=== PATIENT | female | born 1995 | race Caucasian/White ===

== ENCOUNTER 2017-12-05 09:53 | Day surgery (SDC) | payer OTHER ==
[2017-12-03 15:26] LABS: Absolute Lymphocytes (CBC) 2.3 K/uL (0.7-4.9); Absolute Monocytes 0.7 K/uL (0.1-1.3); Absolute Neutrophil 5.5 K/uL (1.8-8.0); Basophils % 0.6 % (0-1.3); Hematocrit 37.3 % (36.0-45.0); Lymphocytes % 26.4 % (15.3-44.8); MCH 27.9 pg (27.0-35.0); MCV 81.1 fL (80-100); MPV 8.4 fL (7.6-11.3); Monocytes % 7.9 % (3.3-12.3); RBC Red Blood Cell Count 4.59 M/uL (3.86-4.86)
[~2017-12-05 09:53] MED LIST: CEFAZOLIN/SWI 1gm 1 GM/10 ML SYR IVP SCH
[2017-12-05] MEDS ORDERED: CEFAZOLIN/SWI 1gm 1 GM/10 ML SYR ONE (10:14)
[2017-12-05] MEDS ORDERED: Ringers Lactate 1,000 ML IV ONE (10:14)
[2017-12-05] MEDS ORDERED: BUPIVACAINE 0.5% PF 10 ML VIAL ONE (10:23)
[2017-12-05] MEDS ORDERED: FENTANYL CITR 100 MCG/2 ML ONE ×2 (11:27→12:09)
[2017-12-05] MEDS ORDERED: PROPOFOL 200 MG/20 ML VIAL IV ONE (11:27)
[2017-12-05] MEDS ORDERED: MIDAZOLAM HCL 2 MG/2 ML INJ ONE (11:27)
[2017-12-05] MEDS ORDERED: KETOROLAC 30 MG/ML INJ ONE (12:04)
[2017-12-05] MEDS ORDERED: ONDANSETRON HCL 40 MG/20 ML VIAL ONE (12:09)
[2017-12-05] MEDS ORDERED: DEXAMETHASONE 10 MG/ML VIAL ONE (12:10)
[2017-12-05] MEDS: MEPERIDINE HCL 50 MG/ML AMP ONE ×2 (12:43→12:50)
[2017-12-05] MEDS ORDERED: MEPERIDINE HCL 50 MG/ML AMP ONE (13:11)
[2017-12-05] MEDS ORDERED: HYDROCODONE/APAP 7.5/325 MG TAB ONE (14:00)
[2017-12-05 14:10] VITALS: BP 112/62; TEMP 97.7; O2SAT 99
--- NOTE | 2017-12-05 23:27 | OP ---
Date of Procedure: 12/05/2017 Surgeon: Nayan Baker MD Preoperative Diagnosis: Inflamed left axillary mass. Postoperative Diagnosis: Inflamed left axillary mass. Procedure: Wide excision, left axillary mass, 6 x 3 cm, with layered closure. Estimated Blood Loss: Minimal. Specimen: Left axillary mass. Findings: Most likely an epidermal inclusion cyst with mild inflammation. Anesthesia: General. Complication: None. Disposition: The patient tolerated the procedure in stable condition and was taken to recovery in go od general condition. Procedure In Detail: The patient was brought to the OR and placed in supine position. General anest hesia was begun. The patient was prepped and draped in usual sterile fashion. Marcaine 0.5% was inf iltrated locally. A 15-blade was used to make a 6 x 3.5 mm incision to include this entire tender ma ss, slightly erythematous, down to the subcutaneous tissue, completely encompassing the mass as being excised all the way down to the deep subcutaneous tissue, sent to Pathology. Wound was irrigated. Bleeding was controlled with cautery. A 2-0 chromic and 3-0 chromic were used to approximate the carmen p subcutaneous tissue and close the skin. Sterile dressing was applied. The patient was awakened an d taken to recovery in good general condition. Discharge Note: The patient will go to day surgery and home when stable. Disposition: Home. Condition: Stable. Discharge Instructions: Resume home meds and diet. Activity as tolerated. No heavy lifting. Remov e outer dressing in 2 days. Shower. Keep wound clean and dry. Keep pressure dressing on and follow up in my office in 2 weeks. Call for appointment. The patient already has antibiotics and Tylenol No. 3 one tablet p.o. q.4 p.r.n. for pain. /MODL Voice ID: [id number] Report ID: [id number]
== END 2017-12-05 14:25 | disposition home or self-care (01) ==
LOC: OR 09:53
PROVIDERS: ATTEND Surgery
PROC: 0JBF0ZZ Excision of Left Upper Arm Subcutaneous Tissue and Fascia, Open Approach (ICD-10-PCS; principal; 2017-12-05 11:30)
DX: L72.0 Epidermal cyst (principal); L02.412 Cutaneous abscess of left axilla; E66.9 Obesity, unspecified; Z91.040 Latex allergy status
CPT/HCPCS: 36415; 84703; 85025; 88304; J0690; J1100; J2175; J2250; J2405; J3010

== ENCOUNTER 2018-07-03 00:28 | Emergency (ER) | payer OTHER ==
[2018-07-03] MEDS ORDERED: MEPERIDINE HCL 25 MG/0.5 ML ONE ×2 (01:19→02:46)
[2018-07-03] MEDS ORDERED: PROMETHAZINE 25 MG/ML VIAL ONE (01:19)
[2018-07-03] MEDS ORDERED: NA CHLORIDE 0.9% 1,000 ML ONE (01:19)
[2018-07-03 01:36] LABS: Absolute Lymphocytes (CBC) 1.7 K/uL (0.7-4.9); Absolute Monocytes 0.6 K/uL (0.1-1.3); Absolute Neutrophil 5.2 K/uL (1.8-8.0); Basophils % 0.4 % (0-1.3); Eosinophils % 0.5 % (0-4.4); Hematocrit 35.8 % (36.0-45.0); Lymphocytes % 22.3 % (15.3-44.8); MPV 8.7 fL (7.6-11.3); Monocytes % 8.2 % (3.3-12.3); RBC Red Blood Cell Count 4.39 M/uL (3.86-4.86)
[2018-07-03 01:50] LABS: Sodium Level 139 mmol/L (136-145)
[2018-07-03 01:51] LABS: ALT/SGPT 34 U/L (12-78); AST/SGOT 18 U/L (15-37); Albumin 3.5 g/dL (3.4-5.0); Alkaline Phosphatase 70 U/L (45-117); BUN Blood Urea Nitrogen 9 mg/dL (7-18); Bicarbonate 24 mmol/L (21-32); Bilirubin Direct 0.1 mg/dL (0-0.2); Bilirubin Total 0.3 mg/dL (0.2-1.0); Glucose Level 142 mg/dL (74-106); Lipase 57 U/L (73-393); Potassium 3.7 mmol/L (3.5-5.1); Protein, Total 7.3 g/dL (6.4-8.2)
[2018-07-03 03:46] LABS: Urine Blood TRACE (NEG); Urine Glucose NEGATIVE (NEG); Urine Protein NEGATIVE (NEG); Urine Specific Gravity 1.025 (1.005-1.030); Urine pH 6.5 (5.0-7.0)
--- NOTE | 2018-07-03 04:23 | ER ---
Nurse's Notes [facility] Name: Emely Fitzpatrick Age: 22 yrs Sex: Female : 1995 Arrival Date: 07/03/2018 Time: 00:28 Bed 15 Private MD: Diagnosis: Lower abdominal pain, unspecified Presentation: 07/03 00:36 Presenting complaint: Patient states: "I am having really bad pain on my lower right jd3 side that comes around to my back. I am currently and my doctor told me to come in.". Transition of care: patient was not received from another setting of care. Onset of symptoms was July 03, 2018. Risk Assessment: Do you want to hurt yourself or someone else? Patient reports no desire to harm self or others. Initial Sepsis Screen: Does the patient meet any 2 criteria? No. Patient's initial sepsis screen is negative. Does the patient have a suspected source of infection? No. Patient's initial sepsis screen is negative. Care prior to arrival: None. 00:36 Method Of Arrival: Ambulatory jd3 00:36 Acuity: ERVIN 3 jd3 Historical: - Allergies: 00:38 Sulfa (Sulfonamide Antibiotics); jd3 - Home Meds: 00:38 Vitamin Oral [Active]; jd3 - PMHx: 00:38 None; jd3 - PSHx: 00:38 Cholecystectomy; Knee surgery; jd3 - Immunization history:: Adult Immunizations up to date. - Social history:: Smoking status: Patient/guardian denies using tobacco. - Ebola Screening: : Patient negative for fever greater than or equal to 101.5 degrees Fahrenheit, and additional compatible Ebola Virus Disease symptoms. Screenin:50 Abuse screen: Denies threats or abuse. Nutritional screening: No deficits noted. ea Tuberculosis screening: No symptoms or risk factors identified. Fall Risk None identified. Assessment: 00:50 General: Appears uncomfortable, Behavior is restless. Pain: Complains of pain in right ea flank pain. Neuro: Level of Consciousness is awake, alert, obeys commands, Oriented to person, place, time. Cardiovascular: Patient's skin is warm and dry. Respiratory: Airway is patent Respiratory effort is even, unlabored, Respiratory pattern is regular, symmetrical. Derm: Skin is pink, warm \\T\\ dry. 01:45 Reassessment: Patient and/or family updated on plan of care and expected duration. Pain ea level reassessed. Patient is alert, oriented x 3, equal unlabored respirations, skin warm/dry/pink. Patient states feeling better. Patient states symptoms have improved. 02:14 Reassessment: Patient and/or family updated on plan of care and expected duration. Pain ea level reassessed. Patient is alert, oriented x 3, equal unlabored respirations, skin warm/dry/pink. Patient states feeling better. Patient states symptoms have improved. 03:31 Reassessment: Patient and/or family updated on plan of care and expected duration. Pain ea level reassessed. Patient is alert, oriented x 3, equal unlabored respirations, skin warm/dry/pink. 04:55 Reassessment: Patient and/or family updated on plan of care and expected duration. Pain ea level reassessed. Pt resting with eyes closed, respirations even and unlabored. Chest expansion even and symmetrical. No s/s of pain or discomfort at this time. 05:18 Reassessment: Patient and/or family updated on plan of care and expected duration. Pain ea level reassessed. Patient is alert, oriented x 3, equal unlabored respirations, skin warm/dry/pink. Discharge instructions given to patient, verbalized the understanding of instruction. Patient states feeling better. Patient states symptoms have improved. Vital Signs: 00:39 BP 132 / 70; Pulse 77; Resp 20 S; Temp 97.7(O); Pulse Ox 100% on R/A; Weight 108.86 kg jd3 (R); Height 5 ft. 3 in. (160.02 cm) (R); Pain 10/10; 01:47 BP 117 / 53; Pulse 71; Resp 18; Pulse Ox 100% on R/A; ea 02:00 BP 99 / 48; Pulse 67; Resp 18; Pulse Ox 96% on R/A; ea 02:32 BP 124 / 55; Pulse 67; Resp 18; Pulse Ox 96% on R/A; ea 03:30 BP 102 / 54; Pulse 69; Resp 18; Pulse Ox 100% ; ea 04:15 BP 107 / 48; Pulse 70; Resp 18; Pulse Ox 98% on R/A; ea 05:15 BP 120 / 68; Pulse 70; Resp 18; Temp 97.8(O); Pulse Ox 100% on R/A; ea 00:39 Body Mass Index 42.51 (108.86 kg, 160.02 cm) jd3 ED Course: 00:28 Patient arrived in ED. am2 00:37 Triage completed. jd3 00:39 Arm band placed on. jd3 00:48 Alli Pérez RN is Primary Nurse. rr5 00:48 [place] Crandall PA is PHCP. jr8 00:48 Mc Victoria MD is Attending Physician. jr8 00:50 Patient has correct armband on for positive identification. Bed in low position. Call ea light in reach. 01:00 Inserted saline lock: 22 gauge in left antecubital area, using aseptic technique. Blood tl2 collected. 05:19 No provider procedures requiring assistance completed. IV discontinued, intact, ea bleeding controlled, No redness/swelling at site. Pressure dressing applied. Administered Medications: 01:10 Drug: Promethazine 12.5 mg Route: IVP; Site: left antecubital; ea 01:53 Follow up: Response: No adverse reaction; Nausea is decreased ea 01:14 Drug: NS 0.9% 1000 ml Route: IV; Rate: 100 ml/hr; Site: left antecubital; ea 05:15 Follow up: Response: No adverse reaction; IV Status: Completed infusion; IV Intake: ea 250ml 05:21 Follow up: Response: No adverse reaction; IV Intake: 300ml ea 01:15 Drug: Demerol 25 mg Route: IVP; Site: left antecubital; ea 01:52 Follow up: Response: No adverse reaction; Pain is decreased ea 02:39 Drug: Demerol 25 mg Route: IVP; Site: left antecubital; ea 03:15 Follow up: Response: No adverse reaction; Pain is decreased ea Intake: 05:15 IV: 250ml; Total: 250ml. ea 05:21 IV: 300ml; Total: 550ml. ea Outcome: 04:23 Discharge ordered by . rn 05:20 Discharged to home ambulatory. ea 05:20 Condition: improved 05:20 Discharge instructions given to patient, Instructed on discharge instructions, follow up and referral plans. Demonstrated understanding of instructions, follow-up care. 05:21 Patient left the ED. ea Signatures: Mc Victoria MD MD rn Roszak, Josh, PA PA jr8 Madeleine Wise RN RN tl2 Rosa Aguilar am2 Toma Urrutia, RN RN ea Miguel Tao, RN RN jd3 Alli Pérez RN RN rr5
--- NOTE | 2018-07-03 04:23 | EDPHYS ---
Physician Documentation [facility] Name: Emely Fitzpatrick Age: 22 yrs Sex: Female : 1995 Arrival Date: 07/03/2018 Time: 00:28 Bed 15 Private MD: ED Physician Mc Victoria HPI: 07/03 03:07 This 22 yrs old Female presents to ER via Ambulatory with complaints of Flank jr8 Pain - right side, Clammy. 03:07 Onset: The symptoms/episode began/occurred acutely, today. The symptoms radiate to jr8 right back. Associated signs and symptoms: Pertinent positives: nausea. The symptoms are described as stabbing. Modifying factors: The symptoms are alleviated by nothing, the symptoms are aggravated by movement. Severity of pain: At its worst the pain was moderate in the emergency department the pain is unchanged. The patient has not experienced similar symptoms in the past. The patient has not recently seen a physician. RLQ abdominal pain that radiates to right low back. Started acute tonight. Approximately 9 weeks with confirmed IUP per patient. Denies urinary symptoms, vaginal bleeding, or discharge . Historical: - Allergies: 00:38 Sulfa (Sulfonamide Antibiotics); jd3 - Home Meds: 00:38 Vitamin Oral [Active]; jd3 - PMHx: 00:38 None; jd3 - PSHx: 00:38 Cholecystectomy; Knee surgery; jd3 - Immunization history:: Adult Immunizations up to date. - Social history:: Smoking status: Patient/guardian denies using tobacco. - Ebola Screening: : Patient negative for fever greater than or equal to 101.5 degrees Fahrenheit, and additional compatible Ebola Virus Disease symptoms. ROS: 03:07 Eyes: Negative for injury, pain, redness, and discharge, ENT: Negative for injury, jr8 pain, and discharge, Neck: Negative for injury, pain, and swelling, Cardiovascular: Negative for chest pain, palpitations, and edema, Respiratory: Negative for shortness of breath, cough, wheezing, and pleuritic chest pain, Back: Negative for injury and pain, MS/Extremity: Negative for injury and deformity, Skin: Negative for injury, rash, and discoloration, Neuro: Negative for headache, weakness, numbness, tingling, and seizure. 03:07 Abdomen/GI: Positive for abdominal pain, nausea, Negative for vomiting, diarrhea, constipation, abdominal cramps, abdominal distension, anorexia, dysphagia, hematemesis, black/tarry stool, rectal pain, rectal bleeding, bowel incontinence, flatulence. Exam: 03:07 Eyes: Pupils equal round and reactive to light, extra-ocular motions intact. Lids and jr8 lashes normal. Conjunctiva and sclera are non-icteric and not injected. Cornea within normal limits. Periorbital areas with no swelling, redness, or edema. ENT: Nares patent. No nasal discharge, no septal abnormalities noted. Tympanic membranes are normal and external auditory canals are clear. Oropharynx with no redness, swelling, or masses, exudates, or evidence of obstruction, uvula midline. Mucous membranes moist. Neck: Trachea midline, no thyromegaly or masses palpated, and no cervical lymphadenopathy. Supple, full range of motion without nuchal rigidity, or vertebral point tenderness. No Meningismus. Cardiovascular: Regular rate and rhythm with a normal S1 and S2. No gallops, murmurs, or rubs. Normal PMI, no JVD. No pulse deficits. Respiratory: Lungs have equal breath sounds bilaterally, clear to auscultation and percussion. No rales, rhonchi or wheezes noted. No increased work of breathing, no retractions or nasal flaring. Back: No spinal tenderness. No costovertebral tenderness. Full range of motion. Skin: Warm, dry with normal turgor. Normal color with no rashes, no lesions, and no evidence of cellulitis. MS/ Extremity: Pulses equal, no cyanosis. Neurovascular intact. Full, normal range of motion. Neuro: Awake and alert, GCS 15, oriented to person, place, time, and situation. Cranial nerves II-XII grossly intact. Motor strength 5/5 in all extremities. Sensory grossly intact. Cerebellar exam normal. Normal gait. 03:07 Abdomen/GI: Inspection: obese Bowel sounds: active, all quadrants, Palpation: soft, in all quadrants, moderate abdominal tenderness, in the right lower quadrant, mass, is not appreciated, rebound tenderness, is not appreciated, voluntary guarding, is not appreciated, involuntary guarding, is not appreciated, no appreciated organomegaly, Indicators: McBurney's point is not tender, Arita's sign is negative, Rovsing's sign is negative, Obturator sign is negative, Liver: tenderness, is not appreciated. Vital Signs: 00:39 BP 132 / 70; Pulse 77; Resp 20 S; Temp 97.7(O); Pulse Ox 100% on R/A; Weight 108.86 kg jd3 (R); Height 5 ft. 3 in. (160.02 cm) (R); Pain 10/10; 01:47 BP 117 / 53; Pulse 71; Resp 18; Pulse Ox 100% on R/A; ea 02:00 BP 99 / 48; Pulse 67; Resp 18; Pulse Ox 96% on R/A; ea 02:32 BP 124 / 55; Pulse 67; Resp 18; Pulse Ox 96% on R/A; ea 03:30 BP 102 / 54; Pulse 69; Resp 18; Pulse Ox 100% ; ea 04:15 BP 107 / 48; Pulse 70; Resp 18; Pulse Ox 98% on R/A; ea 05:15 BP 120 / 68; Pulse 70; Resp 18; Temp 97.8(O); Pulse Ox 100% on R/A; ea 00:39 Body Mass Index 42.51 (108.86 kg, 160.02 cm) jd3 Procedures: 04:08 Ultrasound: Type: OB, performed by the emergency department physician, Bedside u/s rn performed, + IUP with FHTs 171, good fluid. Also looked at kidneys, no signs of hydronephrosis, equal on both sides. . MDM: 00:48 Patient medically screened. [facility] 03:07 Data reviewed: vital signs, nurses notes, lab test result(s). Data interpreted: Pulse jr8 oximetry: on room air is 96 %. Interpretation: normal. Counseling: I had a detailed discussion with the patient and/or guardian regarding: the historical points, exam findings, and any diagnostic results supporting the discharge/admit diagnosis, lab results. 03:10 Transition of care: After a detail discussion of the patient's case, care is jr8 transferred to Mc Victoria MD. 04:21 Differential diagnosis: nephrolithiasis, UTI, appendicitis. ED course: Had long rn discussion with patient, normal u/s of baby, no UTI, trace blood. Possible kidney stone vs appendicitis vs gas vs pain. Normal WBC and afebrile, low chance of appendicitis, offered [facility] and/or MRI, patient states feels better, would rather go home now that she knows baby is ok, and will call her OB first thing in AM for further guidance. Return precautions given and understood.. 07/03 01:04 Order name: Basic Metabolic Panel; Complete Time: 02:13 07/03 01:04 Order name: CBC with Diff; Complete Time: 01:40 07/03 01:04 Order name: Creatinine for Radiology; Complete Time: 02:13 07/03 01:04 Order name: Hepatic Function; Complete Time: 02:13 07/03 01:04 Order name: Lipase; Complete Time: 02:13 07/03 03:05 Order name: Urine Dipstick--Ancillary (enter results); Complete Time: 04:07 07/03 01:04 Order name: IV Saline Lock; Complete Time: 01:05 07/03 01:04 Order name: Labs collected and sent; Complete Time: 01:16 07/03 01:04 Order name: Urine Test (obtain specimen); Complete Time: 03:15 07/03 03:05 Order name: Urine --Ancillary (enter results); Complete Time: 04:07 07/03 01:04 Order name: Urine Dipstick-Ancillary (obtain specimen); Complete Time: 03:15 Administered Medications: 01:10 Drug: Promethazine 12.5 mg Route: IVP; Site: left antecubital; ea 01:53 Follow up: Response: No adverse reaction; Nausea is decreased ea 01:14 Drug: NS 0.9% 1000 ml Route: IV; Rate: 100 ml/hr; Site: left antecubital; ea 05:15 Follow up: Response: No adverse reaction; IV Status: Completed infusion; IV Intake: ea 250ml 05:21 Follow up: Response: No adverse reaction; IV Intake: 300ml ea 01:15 Drug: Demerol 25 mg Route: IVP; Site: left antecubital; ea 01:52 Follow up: Response: No adverse reaction; Pain is decreased ea 02:39 Drug: Demerol 25 mg Route: IVP; Site: left antecubital; ea 03:15 Follow up: Response: No adverse reaction; Pain is decreased ea Disposition: 06:31 Co-signature as Attending Physician, Mc Victoria MD. rn Disposition: 07/03/18 04:23 Discharged to Home. Impression: Lower abdominal pain, unspecified. - Condition is Stable. - Discharge Instructions: Abdominal Pain, Adult, Pain Without a Known Cause. - Medication Reconciliation Form, Thank You Letter, Antibiotic Education, Prescription Opioid Use form. - Follow up: Private Physician; When: As needed; Reason: Recheck today's complaints, Re-evaluation by your physician. - Problem is new. - Symptoms have improved. Signatures: Dispatcher [employer] EDMS Mc Victoria MD MD rn Roszak, Josh, PA PA jr8 Toma Urrutia RN Miguel Avendano ea, RN RN jd3 Corrections: (The following items were deleted from the chart) 05:21 04:23 07/03/2018 04:23 Discharged to Home. Impression: Lower abdominal pain, ea unspecified. Condition is Stable. Forms are Medication Reconciliation Form, Thank You Letter, Antibiotic Education, Prescription Opioid Use. Follow up: Private Physician; When: As needed; Reason: Recheck today's complaints, Re-evaluation by your physician. Problem is new. Symptoms have improved. rn
[2018-07-03 05:42] VITALS: BP 120/68; TEMP 97.8; O2SAT 100
== END 2018-07-03 05:21 | disposition home or self-care (01) ==
LOC: ER 00:28
DX: O26.891 Other specified pregnancy related conditions, first trimester (principal); R10.31 Right lower quadrant pain; Z88.2 Allergy status to sulfonamides
CPT/HCPCS: 36415; 80048; 80076; 81003; 81025; 83690; 85025; 96361; 96374; 96375; 99284; J2175; J2550; J7030